=== PATIENT | male | born 2000 | race Caucasian/White ===

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

== ENCOUNTER 2021-09-23 16:47 | Outpatient (REF) | payer MEDICAID, SELFPAY ==
[2021-09-24 16:33] LABS: COVID-19 RT-PCR UVMMC Result Negative (Negative)
== END 2021-09-23 16:48 | disposition home or self-care (01) ==
LOC: LBN 16:47
PROVIDERS: Visit Provider Physician Assistant Medical
DX: Z20.822 Contact with and (suspected) exposure to COVID-19 (principal); J06.9 Acute upper respiratory infection, unspecified
CPT/HCPCS: U0003

== ENCOUNTER 2022-10-25 19:04 | Emergency (ER) | payer MEDICAID, SELFPAY ==
[2022-10-25 19:12] VITALS: BP 122/55; PULSE 83; RESP 16; TEMP 36.9; O2SAT 98
--- NOTE | 2022-10-25 19:16 | ED.GENADUL_ITS ---
Discharge Plan Disposition Patient Disposition: Home Condition: Improving Discharge Details Clinical Impression: Acute streptococcal pharyngitis Primary Care Provider: Unknown,Unknown ED Provider: Ash Kuo Home Meds and New Rx's Prescriptions: New penicillin V potassium 500 mg tablet 500 mg PO TID 9 Days Qty: 27 0RF Continued bupropion HCl 150 mg tablet extended release 24 hr 150 mg PO DAILY Label Comments: TAKE ONE TABLET BY MOUTH EVERY MORNING Discharge Instructions Instructions: Pharyngitis (ED) Additional Instructions: Penicillin every 6 hours for the first 4 doses, then 3 times daily until finished for a total of 10 days. You are given a single dose of dexamethasone today for its anti-inflammatory properties. You may continue ibuprofen and/or Tylenol as needed for pain. Small, frequent sips of fluids and/or popsicles to maintain hydration. Return to the emergency department for any acute concerns. Medical Decision Making 22-year-old male presents with day 3 of sore throat. He had a low-grade fever of 101. He is afebrile at the time of presentation, normotensive. Exam reveals an exudative pharyngitis. Rapid strep test obtained and is positive. We will treat with a course of penicillin. Patient given a single dose of dexamethasone for its anti- inflammatory properties. He is stable and appropriate for outpatient management HPI General Mode of arrival: ambulatory . Date/Time Provider Initiated Documentation: 10/25/22 19:06 . Limitations to Documentation: no limitations . Information obtained by: patient . History of Present Illness 22 year old M presents to the emergency department with the chief complaint of Sore throat for 3 days, described as moderate, Quality is described as dull and constant, and is localized to the mouth. Patient reports no radiation. Patient started experiencing this day(s) and it has been constant. No relieving factors improve symptom(s), No exacerbating factors reported . Patient notes fever/chills and other (Low-grade fever at home. No change to voice, swallowing normally). Patient did receive the following treatments prior to arrival, none Related Data Home Medications Medication Instructions Recorded Confirmed bupropion HCl 150 mg 24 hr tablet, 150 mg PO DAILY 11/27/20 11/27/20 extended release penicillin V potassium 500 mg 500 mg PO TID 9 days #27 tabs 10/25/22 tablet Previous Rx's Medication Instructions Recorded penicillin V potassium 500 mg 500 mg PO TID 9 days #27 tabs 10/25/22 tablet Allergies Allergy/AdvReac Type Severity Reaction Status Date / Time No Known Allergies Allergy Unverified 11/27/20 22:05 General Stated Complaint: Sorethroat TORRI: 4 Review of Systems Narrative: 7 systems reviewed and otherwise negative PFSH All Active Problems (Updated 10/25/22 @ 19:25 by Ash Kuo MD) Closed fracture of left clavicle (Acute) CHI (closed head injury) (Acute) Acute streptococcal pharyngitis (Acute) Medical History Anxiety Depression Social History Smoking/Tobacco Use Status: Former Tobacco Use Smoking risk assessment performed?: Yes Alcohol Intake: current Alcohol Intake frequency: a few times a month Alcohol type: beer Drug use: Occasionally Substance use type: marijuana Do you feel safe at home: Yes Do you feel safe in your relationship?: Yes Exam Narrative Exam Narrative: GEN: awake, alert, oriented 3. Pleasant, well groomed, interactive. HEAD: Normocephalic, atraumatic ENT: Mucous membranes moist, oropharynx erythematous with white exudate present. No significant swelling or asymmetry, the uvula is midline, tympanic membranes show mild congestion bilaterally,, External ear exam unremarkable EYES: PERRL, EOMI NECK: Full ROM, no GEOVANNY, no menigismus CHEST/RESP: Nontender, clear to auscultation bilateral, no wheeze/rhonchi/rales CARDIOVASCULAR: RRR, no murmur, rub jessica. 2+ Rad pulse bilateral ABDOMEN: Soft, nontender, no mass. +Bowel sounds EXT: Full ROM, no edema, no rash Neuro: Grossly normal neurologic exam, conversant, interactive. Psych: Speech fluent, thoughts congruent, affect normal Course Vital Signs Vital signs: Vital Signs Temperature 36.9 C 10/25/22 19:12 Pulse 83 10/25/22 19:12 Respiratory Rate 16 10/25/22 19:12 Blood Pressure 122/55 L 10/25/22 19:12 Pulse Oximetry 98 10/25/22 19:12 Temperature 36.9 C 10/25/22 19:12 Pulse 83 10/25/22 19:12 Respiratory Rate 16 10/25/22 19:12 Blood Pressure 122/55 L 10/25/22 19:12 Blood Pressure Position Sitting 10/25/22 19:12 Pulse Oximetry 98 10/25/22 19:12 Oxygen Delivery Method Room Air 10/25/22 19:12 Oxygen Flow Rate 0 10/25/22 19:12 Pain Level 7 10/25/22 19:12
[2022-10-25] MEDS: Penicillin V POTASSIUM 500 MG TAB, 4 TABS/BTL PO (19:30)
[2022-10-25] MEDS: Dexamethasone 4 MG TAB 8 MG PO (19:30)
[2022-10-26 02:43] VITALS: BP 123/62; PULSE 84; RESP 16; O2SAT 98
== END 2022-10-25 19:33 | disposition home or self-care (01) ==
PROVIDERS: Emergency Provider Emergency Medicine
DX: J02.0 Streptococcal pharyngitis (principal)
CPT/HCPCS: 36415; 87880; 99283; 99284; J8540

== ENCOUNTER 2022-12-16 13:46 | Emergency (ER) | payer MEDICAID, SELFPAY ==
--- NOTE | 2022-12-16 13:45 | DI.CT_ITS ---
Exam(s) CT ABDOMEN PELVIS W EXAM: CT ABDOMEN PELVIS W CLINICAL HISTORY: epigastric pain TECHNIQUE: Imaging Protocol: Axial computed tomography images with coronal and sagittal reformatted images were created and reviewed CONTRAST MATERIAL: Intravenous: Omnipaque 350 Contrast volume:100 mL Oral: No COMPARISON: No exams were available for comparison FINDINGS: ABDOMEN: Lung Bases: Normal where visualized. Liver: Normal density. No measurable mass. Portal, Superior Mesenteric, and Splenic Veins: Unremarkable. Gallbladder and Biliary Tract: No radiodense calculus or dilation. Pancreas: Normal density, no abnormal calcifications or inflammatory process. Spleen: Normal. Adrenals: No masses seen. Kidneys: Normal size, contour and axis. No radiodense stones or obstructive uropathy. No masses seen. Abdominal Aorta: Abdominal portion non-dilated. Bowel: No obstruction or bowel wall thickening. Status post appendectomy. Note is made of an enteroe nteric intussusception in the left upper quadrant. No obstruction is identified. Peritoneal Cavity: No ascites, collection or mesenteric inflammatory response. No free air. Lymph Nodes: Within normal limits. Bones: Within normal limits for the patient's age. Soft Tissues: Unremarkable. PELVIS: Bladder: Symmetric distention, no gross wall thickening. Reproductive Organs: Unremarkable as visualized. Lymph Nodes: Within normal limits. Bones: Within normal limits for the patient's age. IMPRESSION: 1. There is an enteroenteric intussusception in the left upper quadrant. There is no obstruction. 2. Otherwise unremarkable examination. 3. Findings were discussed with Sarita Corley at 4:17 p.m. on 12/16/2022. RADIATION DOSE DELIVERED: 612.1mGy.cm Total DLP DATA REPOSITORY: All CT scans at this facility are submitted to the National Radiology Data Registry (NRDR) Dose Index Registry (DIR) with the [employer] (A[employer]). RADIATION OPTIMIZATION: All CT scans at this facility use at least one of these dose optimization te chniques: automated exposure control; mA and/or kV adjustment per patient size (includes targeted exa ms where dose is matched to clinical indication); or iterative reconstruction.
[2022-12-16 13:48] VITALS: BP 133/84; PULSE 69; RESP 18; TEMP 36.6; O2SAT 100
[2022-12-16] MEDS: Ondansetron 4 MG/2 ML VIAL IVP (14:08)
[2022-12-16 14:14] LABS: Abs Immature Grans 0.01 10^3/uL (0.0-0.06); Absolute Basophil Count 0.04 10^3/uL (0.0-0.2); Absolute Eosinophil Count 0.04 10^3/uL (0.0-0.7); Absolute Lymphocyte Count 2.04 10^3/uL (1.2-3.4); Absolute Monocyte Count 0.47 10^3/uL (0.1-0.8); Absolute Neutrophil Count 4.31 10^3/uL (1.2-6.7); Basophils % 0.6; Eosinophils % 0.6; HCT 36.1 % (40.0-50.0); HGB 11.9 g/dL (13.5-17.5); Immature Grans % 0.1; Lymphocytes % 29.5; MCH 29.2 pg (27.0-33.0); MCV 89 fL (80-95); MPV 9.4 fL (8.0-11.0); Monocytes % 6.8; Neutrophils % 62.4; Platelet Count 273 10^3/uL (130-400); RBC 4.07 10^6/uL (4.36-5.78); RDW 11.9 % (11.8-14.1); RDW-SD 38.5 fL; WBC 6.91 10^3/uL (4.4-10.8)
[2022-12-16 14:18] LABS: Bilirubin Negative (Negative); Blood Negative (Negative); Clarity Clear (Clear); Glucose Negative (Negative); Ketones Negative (Negative); Leukocyte Esterase Negative (Negative); Nitrite Negative (Negative); Specific Gravity 1.025 (1.005-1.025); Urobilinogen 0.2 mg/dL (Up to 0.2)
[2022-12-16 14:29] LABS: ALT 20 U/L (16-63); AST 14 U/L (15-37); Albumin 4.4 g/dL (3.4-5.0); Alkaline Phosphatase 53 U/L (46-116); Anion Gap 4.6 mmol/L (3-11); BUN 19 mg/dL (7-18); Bilirubin, Total 0.4 mg/dL (0.2-1.0); CO2 28.4 mmol/L (21.0-32.0); CREATININE 0.8 mg/dL (0.70-1.30); Chloride 107 mmol/L (98-107); Estimated GFR 129.13 (mL/min/1.73m2); Glucose 94 mg/dL (74-106); Lipase 41 U/L (16-77); Potassium 3.8 mmol/L (3.5-5.1); Sodium 140 mmol/L (136-145); Total Protein 7.5 g/dL (6.4-8.2)
--- NOTE | 2022-12-16 15:26 | ED.GENADUL_ITS ---
Discharge Plan Disposition Patient Disposition: Home Condition: Stable Discharge Details Clinical Impression: Enterocolitis Primary Care Provider: Femi Rivera ED Provider: Sarita Corley Home Meds and New Rx's Prescriptions: New sucralfate [Carafate] 1 gram tablet 1 g PO BID Qty: 90 0RF Continued bupropion HCl 150 mg tablet extended release 24 hr 150 mg PO DAILY Patient Comments: not taking Discharge Instructions Additional Instructions: Continue on your prescribed medications You will need to follow-up with a surgeon tomorrow, they will likely call you in the afternoon, should you have decreased bowel movements or uncontrolled vomiting you must return immediately to the emergency department Take Tylenol as needed for pain Keep yourself hydrated Referrals: Femi Rivera [Primary Care Provider] - Chilo Ca MD [ [facility] STAFF PHYSICIAN] - Discharge Data Discharge Date/Time-TO BE ENTERED AT DEPARTURE: 12/16/22 16:37 Medical Decision Making This 22-year-old male presents with report of abdominal pain throughout the day today. Denies any exacerbating alleviating factors. Secondary to age, weight loss, and pain complaints and exam, did order CT abdomen and pelvis, diagnostic labs including lipase are all within normal limits Pending CT abdomen and pelvis at this time CT radiology interpretation my review shows possible enterocolitis 11 conception Case was discussed with Dr. Ca, radiologist Dr. Maury Ca secondary, recommendation for admission to the hospital for observation, however patient declines and would like to instead be reassessed at the surgeon's office tomor row Dr. Ca will follow-up with patient tomorrow afternoon Patient is fully alert, oriented, of decisional capacity, he is aware he must return to the emergency department immediately should he have uncontrolled nausea or vomiting or changes in his ability to have bowel movements Discharged home with stable vitals with reported improved pain Medical Records Medical records reviewed: Yes I reviewed the patient's medical records. HPI General Date/Time Provider Initiated Documentation: 12/16/22 13:57 . HPI Narrative: This 22-year-old male presents with report of abdominal pain which started today. Denies history of similar symptoms in the past. States has had some weight loss in the past month. He thinks about 30 pounds. He denies any night sweats. Used to drink alcohol heavily, drinks occasionally now. Denies any fever or chills. Denies known exacerbating or relieving factors. Denies any chest pain or shortness of breath. Related Data Home Medications Medication Instructions Recorded Confirmed bupropion HCl 150 mg 24 hr tablet, 150 mg PO DAILY 11/27/20 11/27/20 extended release sucralfate 1 gram tablet (Carafate) 1 g PO BID #90 tabs 12/16/22 Previous Rx's Medication Instructions Recorded sucralfate 1 gram tablet (Carafate) 1 g PO BID #90 tabs 12/16/22 Allergies Allergy/AdvReac Type Severity Reaction Status Date / Time No Known Allergies Allergy Unverified 12/16/22 13:51 General Stated Complaint: Abd Prob TORRI: 3 PFSH All Active Problems (Updated 12/16/22 @ 16:27 by EDUARDO Abdullahi) Closed fracture of left clavicle (Acute) CHI (closed head injury) (Acute) Enterocolitis (Acute) Medical History Anxiety Depression Social History Smoking/Tobacco Use Status: Current every day Tobacco Type: smokeless tobacco Smoking risk assessment performed?: Yes Alcohol Intake: current Alcohol Intake frequency: a few times a month Alcohol type: beer Drug use: Occasionally Substance use type: marijuana Do you feel safe at home: Yes Do you feel safe in your relationship?: Yes Exam Const General: cooperative and no acute distress Resp Effort & Inspection: normal respiratory effort Cardio Rate: regular rate GI Inspection: normal to inspection Other: diffuse tenderness without rebound or guarding Neuro General: patient alert and patient oriented x3 Course Vital Signs Vital signs: Vital Signs Temperature 36.6 C 12/16/22 13:48 Pulse 69 12/16/22 13:48 Respiratory Rate 18 12/16/22 13:48 Blood Pressure 133/84 12/16/22 13:48 Pulse Oximetry 100 12/16/22 13:48 Temperature 36.6 C 12/16/22 13:48 Temperature Source Tympanic 12/16/22 13:48 Pulse 69 12/16/22 13:48 Respiratory Rate 18 12/16/22 13:48 Respiratory Effort Normal, Non-Labored 12/16/22 13:50 Blood Pressure 133/84 12/16/22 13:48 Pulse Oximetry 100 12/16/22 13:48 Oxygen Delivery Method Room Air 12/16/22 13:48 Oxygen Flow Rate 0 12/16/22 13:48 Lab/Test Results Lab/Test Results: Laboratory Tests Range/Units 12/16/22 12/16/22 12/16/22 14:08 14:08 14:11 WBC (4.4-10.8) 10^3/uL 6.91 RBC (4.36-5.78) 10^6/uL 4.07 L Hgb (13.5-17.5) g/dL 11.9 L Hct (40.0-50.0) % 36.1 L MCV (80-95) fL 89 MCH (27.0-33.0) pg 29.2 MCHC (32.0-36.0) % 33.0 RDW (11.8-14.1) % 11.9 Plt Count (130-400) 10^3/uL 273 MPV (8.0-11.0) fL 9.4 Immature Gran % 0.1 Neutrophils % 62.4 Lymphocytes % 29.5 Monocytes % 6.8 Eosinophils % 0.6 Basophils % 0.6 Nucleated RBC % (0.0-0.3) % 0.0 Absolute Neutrophils (1.2-6.7) 10^3/uL 4.31 Absolute Lymphocytes (1.2-3.4) 10^3/uL 2.04 Absolute Monocytes (0.1-0.8) 10^3/uL 0.47 Absolute Eosinophils (0.0-0.7) 10^3/uL 0.04 Absolute Basophils (0.0-0.2) 10^3/uL 0.04 Sodium (136-145) mmol/L 140 Potassium (3.5-5.1) mmol/L 3.8 Chloride (98-107) mmol/L 107 Carbon Dioxide (21.0-32.0) mmol/L 28.4 Anion Gap (3-11) mmol/L 4.6 BUN (7-18) mg/dL 19 H Creatinine (0.70-1.30) mg/dL 0.8 Est GFR (CKD-EPI 2020) (mL/min/1.73m2) 129.13 Glucose (74-106) mg/dL 94 Calcium (8.5-10.1) mg/dL 9.0 Total Bilirubin (0.2-1.0) mg/dL 0.4 AST (15-37) U/L 14 L ALT (16-63) U/L 20 Alkaline Phosphatase (46-116) U/L 53 Total Protein (6.4-8.2) g/dL 7.5 Albumin (3.4-5.0) g/dL 4.4 Lipase (16-77) U/L 41 Urine Color (Yellow) Yellow Urine Clarity (Clear) Clear Urine pH (5-8) 6.0 Ur Specific [place] (1.005-1.025) 1.025 Urine Protein (Negative) mg/dL Negative Urine Ketones (Negative) mg/dL Negative Urine Blood (Negative) Negative Urine Nitrite (Negative) Negative Urine Bilirubin (Negative) Negative Urine Urobilinogen (Up to 0.2) mg/dL 0.2 Ur Leukocyte Esterase (Negative) Negative Urine Glucose (Negative) mg/dL Negative PAWSS Have you Been Recently Intoxicated or Drunk Within the Last 30 days?: No Have you Ever Experienced Previous Episodes of Alcohol Withdrawal?: Yes Have you ever Experienced Withdrawal Seizures?: No Have you ever Experienced Delirium Tremens(DT)s?: No Have you ever undergone Alcohol Rehabilitation Treatment (i.e, inpt ot outpatient treatment programs)?: No Have you ever Experienced Blackouts?: No Have you ever Combined Alcohol with other Downers within the last 90 days?: No Have you ever Combined Alcohol with any other Substance of Abuse during the last 90 days?: No Positive Blood Alcohol level on Presentation? [PCS.BAL]: No Evidence of Increased Autonomic Activity (i.e. HR>120, tremor, sweating, agitation, nausea)?: No Result: 1
[2022-12-16] MEDS: Omnipaque 350 MG/ML 100 ML BTL IJ (15:39)
[2022-12-16] MEDS: Normal Saline Flush 10 ML SYR IVP (15:42)
[2022-12-16 16:37] VITALS: BP 118/74; PULSE 72; RESP 18; O2SAT 98
== END 2022-12-16 16:37 | disposition home or self-care (01) ==
PROVIDERS: Emergency Provider Physician Assistant; PCP Chiropractor
DX: A04.71 Enterocolitis due to Clostridium difficile, recurrent (principal)
CPT/HCPCS: 36415; 80053; 83690; 96374; 99285; 74177; 81003; 85025; 99284; J2405; J3490

== ENCOUNTER 2023-06-30 08:41 | Emergency (ER) | payer MEDICAID, SELFPAY ==
[2023-06-30 08:44] VITALS: BP 167/95; PULSE 100; TEMP 37.1; O2SAT 100
--- NOTE | 2023-06-30 08:52 | DI.CT_ITS ---
Exam(s) CT ABDOMEN PELVIS W EXAM: CT ABDOMEN PELVIS W CLINICAL HISTORY: ruq pain, thin stools, hx of intussusception. TECHNIQUE: Imaging Protocol: Axial computed tomography images with coronal and sagittal reformatted images were created and reviewed CONTRAST MATERIAL: Intravenous: Omnipaque-350 100cc Oral: Yes. Oral contrast was administered for bowel opacification. COMPARISON: CT CT ABDOMEN PELVIS W from 12/16/2022 FINDINGS: VISUALIZED LUNG BASES: No nodules nor pleural effusions evident. ABDOMEN: There is no ascites. LIVER: There are no focal hepatic lesions evident. No dilated intrahepatic ducts. GALLBLADDER/BILIARY: No obvious gallbladder pathology. CBD is not dilated. PANCREAS: No evidence of pancreatic mass nor dilatation of the pancreatic duct. SPLEEN: Spleen is not enlarged. No obvious intrasplenic lesions. Splenic and portal veins are paten t. ADRENALS: There are no significant adrenal masses. KIDNEYS:No cysts evident. No solid renal masses. No calculi nor hydronephrosis.. ABDOMINAL AORTA: Abdominal aorta is not enlarged. LYMPH NODES:There is no retroperitoneal nor paraaortic adenopathy. ABDOMINAL WALL: No evidence of significant anterior abdominal wall nor inguinal hernia. GI: There is again noted an enteroenteric intussusception of the left-sided jejunal loop which is benjie ntical location to the prior intussusception described on the CT scan of 12/16/2022. There is no bow el obstruction at this level. No obvious mass. PELVIS: GI: Appendix is surgically absent.No evidence of sigmoid diverticulitis. LYMPH NODES: There is no intrapelvic nor inguinal adenopathy. REPRODUCTIVE: Prostate size normal. URINARY BLADDER: No calculi nor obvious masses evident OSSEOUS: No fractures and no significant osseous lesions. IMPRESSION: 1. There is a left-sided enteroenteric intussusception again noted at exact similar location to the s valerie finding on the prior CT scan November 2022. There is no bowel obstruction at this level. However, given the consistency of this finding I recommend further study, starting with upper GI series/small bowel follow-through. 2. No ascites. No free air. No bowel obstruction. 3. Appendix is surgically absent. Discussed with ER position. RADIATION DOSE DELIVERED: 725.26mGy.cm Total DLP DATA REPOSITORY: All CT scans at this facility are submitted to the National Radiology Data Registry (NRDR) Dose Index Registry (DIR) with the [employer] ([employer]). RADIATION OPTIMIZATION: All CT scans at this facility use at least one of these dose optimization te chniques: automated exposure control; mA and/or kV adjustment per patient size (includes targeted exa ms where dose is matched to clinical indication); or iterative reconstruction.
--- NOTE | 2023-06-30 08:55 | ED.GENADUL_ITS ---
Discharge Plan Disposition Patient Disposition: Home Discharge Details Clinical Impression: Abdominal pain, epigastric Primary Care Provider: Femi Rivera ED Provider: Cali Frias Home Meds and New Rx's Prescriptions: No Action bupropion HCl 150 mg tablet extended release 24 hr 150 mg PO DAILY Patient Comments: not taking sucralfate [Carafate] 1 gram tablet 1 g PO BID Qty: 90 0RF Patient Comments: not taking Discharge Instructions Instructions: Biliary Colic (ED), Epigastric Pain (ED) Additional Instructions: At this time your CAT scan does show evidence of the same lesion/intussusception that was noted before. However currently your symptoms do not appear co nsistent with an obstruction or other pathology caused by the intussusception. We did discuss this with the surgeons Dr. Ca, and they do recommend close follow-up for EGD and colonoscopy. We have placed a referral on your behalf, they will contact you with an appointment time. Additionally, there is concern that your symptoms may be secondary to a spasm of your gallbladder. Please avoid any greasy foods, dairy foods, or fatty foods. Please take a detailed diet diary/food diary over the next 48 weeks to look for any trends that may be bring about your symptoms. Please take Tylenol and Motrin as needed for pain. If you notice any worsening of your symptoms, or any new symptoms such as vomiting, diarrhea, fever, chills, shortness of breath, chest pain, numbness, weakness, or fainting , please return immediately to the emergency department for reevaluation. Please follow up with your primary care provider as soon as possible for reassessment and reevaluation. As always, it was a pleasure participating in your medical care today. Referrals: Femi Rivera [Primary Care Provider] - Chilo Ca MD [ [facility] STAFF PHYSICIAN] - Bushra Bradley DO [OSTEOPATHIC DOCTOR] - Medical Decision Making 23-year-old male with no significant past medical history however there is a high suspicion for potential Crohn's disease presents today for evaluation of abdominal pain. Patient states that in the past he has been seen for abdominal pain where he has had intermittent episodes of intussusception. There is generalized enteritis noted, and with a strong family history of Crohn's there is suspicion for Crohn's. Unfortunately he never was able to follow-up for his colonoscopy and endoscopy that was had been scheduled. He presents today for right upper quadrant abdominal pain. For the last 2 to 3 weeks he has had intermittent right upper quadrant abdominal pain. It occurs about 4-5 times per day, and it lasts and about 15-minute episodes. When it comes on it comes on usually 10 to 15 minutes after eating, he describes it as a balloon like sensation in the right upper quadrant, and then it becomes severe and sharp over the course of a minute or so and then gradually dissipates over the next 15 to 30 minutes. He denies any vomiting. He does admit to thin stools. He has not had a large bowel movement for the last 3 to 4 days. He denies any blood in his stools. He denies any vomiting. No fever or chills. No significant weight loss currently. He denies any specific food which worsens his symptoms. Exam demonstrates intact bowel sounds. Mild pain in the right upper quadrant, but negative Millan sign. Mild achiness in McBurney's point. Negative obturator and psoas sign. No evidence of an acute surgical abdomen. He states that his current pain is not as bad as the exacerbations that he has had earlier today and last night. Differential is broad but includes biliary colic, less likely cholecystitis. However tumor or mass with his thin stool is of concern, as well as exacerbation of Crohn's. Fistula is also on the differential. Discussed the risks and benefits of repeat radiographic evaluation, and at this point through shared decision-making process we will progress with a CT scan of the abdomen and transition to ultrasound if needed of the right upper quadrant due to the differential. Will monitor closely and reassess, gently rehydrate. Patient does not want anything for pain at this time. 12:39 PM Of patient's laboratory work-up has returned, unremarkable. No white count bandemia or left shift. Electrolytes normal. Urinalysis negative. Lipase normal. Patient's pain is still notably mild. CT scan was performed and again shows evidence of possible left-sided anterior enteric intussusception that is again noted in the exact similar location as prior CAT scan in November 2022. No bowel obstruction. I did discuss the case with Dr. Ca, he reviewed the images. He would like to follow-up closely with the patient on an outpatient basis for EGD and colonoscopy. At this time patient appears notably stable. He is does not show any current clinical evidence of obstruction, surgical abdomen, or other evidence of an active acute life-threatening etiology. Patient will be discharged home. Recommend avoidance of fatty foods, greasy foods, or dairy products. Recommend food diary. Discussed red flags for which to return. I have extensively reviewed the treatment plan and discharge instructions with the patient and their family. I have addressed all patient concerns at this time. The patient and family was made aware of what symptoms to monitor for that would warrant a return to the emergency department. Discussed the plan with the patient and family, they demonstrate verbal understanding and agreement with our assessment and plan at this time. The documentation in this chart was dictated using quietrevolution dictation software. Please excuse any dictation errors. FINDINGS: VISUALIZED LUNG BASES: No nodules nor pleural effusions evident. ABDOMEN: There is no ascites. LIVER: There are no focal hepatic lesions evident. No dilated intrahepatic ducts. GALLBLADDER/BILIARY: No obvious gallbladder pathology. CBD is not dilated. PANCREAS: No evidence of pancreatic mass nor dilatation of the pancreatic duct. SPLEEN: Spleen is not enlarged. No obvious intrasplenic lesions. Splenic and portal veins are patent. ADRENALS: There are no significant adrenal masses. KIDNEYS:No cysts evident. No solid renal masses. No calculi nor hydronephrosis.. ABDOMINAL AORTA: Abdominal aorta is not enlarged. LYMPH NODES:There is no retroperitoneal nor paraaortic adenopathy. ABDOMINAL WALL: No evidence of significant anterior abdominal wall nor inguinal hernia. GI: There is again noted an enteroenteric intussusception of the left-sided jejunal loop which is identical location to the prior intussusception described on the CT scan of 12/16/2022. There is no bowel obstruction at this level. No obvious mass. PELVIS: GI: Appendix is surgically absent.No evidence of sigmoid diverticulitis. LYMPH NODES: There is no intrapelvic nor inguinal adenopathy. REPRODUCTIVE: Prostate size normal. URINARY BLADDER: No calculi nor obvious masses evident OSSEOUS: No fractures and no significant osseous lesions. IMPRESSION: 1. There is a left-sided enteroenteric intussusception again noted at exact similar location to the same finding on the prior CT scan November 2022. There is no bowel obstruction at this level. However, given the consistency of this finding I recommend further study, starting with upper GI series/small bowel follow-through. 2. No ascites. No free air. No bowel obstruction. 3. Appendix is surgically absent. HPI General Date/Time Provider Initiated Documentation: 06/30/23 08:42 . HPI Narrative: 23-year-old male with no significant past medical history however there is a high suspicion for potential Crohn's disease presents today for evaluation of abdominal pain. Patient states that in the past he has been seen for abdominal pain where he has had intermittent episodes of intussusception. There is generalized enteritis noted, and with a strong family history of Crohn's there is suspicion for Crohn's. Unfortunately he never was able to follow-up for his colonoscopy and endoscopy that was had been scheduled. He presents today for right upper quadrant abdominal pain. For the last 2 to 3 weeks he has had intermittent right upper quadrant abdominal pain. It occurs about 4-5 times per day, and it lasts and about 15-minute episodes. When it comes on it comes on usually 10 to 15 minutes after eating, he describes it as a balloon like sensation in the right upper quadrant, and then it becomes severe and sharp over the course of a minute or so and then gradually dissipates over the next 15 to 30 minutes. He denies any vomiting. He does admit to thin stools. He has not had a large bowel movement for the last 3 to 4 days. He denies any blood in his stools. He denies any vomiting. No fever or chills. No significant weight loss currently. He denies any specific food which worsens his symptoms. Related Data Home Medications Medication Instructions Recorded Confirmed bupropion HCl 150 mg 24 hr tablet, 150 mg PO DAILY 11/27/20 11/27/20 extended release sucralfate 1 gram tablet (Carafate) 1 g PO BID #90 tabs 12/16/22 Previous Rx's Medication Instructions Recorded sucralfate 1 gram tablet (Carafate) 1 g PO BID #90 tabs 12/16/22 Allergies Allergy/AdvReac Type Severity Reaction Status Date / Time No Known Allergies Allergy Unverified 06/30/23 09:28 General Stated Complaint: Abd Prob TORRI: 3 Review of Systems All systems reviewed & are unremarkable except as noted in HPI and below PFSH All Active Problems (Updated 06/30/23 @ 12:39 by Cali Frias DO) Closed fracture of left clavicle (Acute) CHI (closed head injury) (Acute) Abdominal pain, epigastric (Acute) Medical History Anxiety Depression Social History Smoking/Tobacco Use Status: Current every day Tobacco Type: smokeless tobacco Smoking risk assessment performed?: Yes Alcohol Intake: current Alcohol Intake frequency: a few times a month Alcohol type: beer Drug use: Occasionally Substance use type: marijuana Housing: house Do you feel safe at home: Yes Do you feel safe in your relationship?: Yes Exam Narrative Exam Narrative: 1.Const: Well-nourished, Well-developed, appearing stated age 2.Eyes: PERRL, no conjunctival injection, and symmetrical lids. 3.ENT: Atraumatic external nose and ears. Moist MM. Neck: Symmetric, trachea midline, No thyromegaly. 4.CVS: +S1/S2, No murmurs or gallops. Peripheral pulses 2+ and equal in all extremities. Brisk capillary refill in all extremities. 5.RESP: Unlabored respiratory effort. Clear to auscultation bilaterally. No wheezes rales or rhonchi 6.GI: Soft, nondistended. No guarding or rebound. Mild tenderness in the right upper quadrant. Negative Millan sign. Mild achiness at McBurney's point. No rebound. Negative obturator and psoas sign. 7.MSK: Normocephalic/Atraumatic, Extremities w/o deformity or ttp No cyanosis or clubbing, Normal movement of all extremities 8.Skin: Warm, Dry. No rashes or lesions. 9.Neuro: customer care assistant II-XII grossly intact. Sensation grossly intact, no focal neurologic deficits. 10.Psych: (AAO) x3. Appropriate mood and affect Course Vital Signs Vital signs: Vital Signs Temperature 37.1 C 06/30/23 08:44 Pulse 100 H 06/30/23 08:44 Blood Pressure 167/95 H 06/30/23 08:44 Pulse Oximetry 100 06/30/23 08:44 Temperature 37.1 C 06/30/23 08:44 Temperature Source Temporal Artery Scan 06/30/23 08:44 Pulse 100 H 06/30/23 08:44 Blood Pressure 167/95 H 06/30/23 08:44 Blood Pressure Position Supine 06/30/23 08:44 Pulse Oximetry 100 06/30/23 08:44 Oxygen Delivery Method Room Air 06/30/23 08:44 Oxygen Flow Rate 0 06/30/23 08:44
[2023-06-30] MEDS: Breeza Beverage 473 ML BTL PO ×2 (09:02)
[2023-06-30] MEDS: Omnipaque 350 MG/ML 50 ML BTL IJ (09:03)
[2023-06-30 09:13] LABS: Abs Immature Grans 0.02 10^3/uL (0.0-0.06); Absolute Basophil Count 0.06 10^3/uL (0.0-0.2); Absolute Eosinophil Count 0.01 10^3/uL (0.0-0.7); Absolute Lymphocyte Count 2.34 10^3/uL (1.2-3.4); Absolute Monocyte Count 0.52 10^3/uL (0.1-0.8); Basophils % 0.6; Eosinophils % 0.1; HCT 39.5 % (40.0-50.0); HGB 13.6 g/dL (13.5-17.5); Immature Grans % 0.2; MCH 29.2 pg (27.0-33.0); MCHC 34.4 % (32.0-36.0); MCV 85 fL (80-95); MPV 9.3 fL (8.0-11.0); Monocytes % 5.6; Neutrophils % 68.5; Platelet Count 309 10^3/uL (130-400); RBC 4.65 10^6/uL (4.36-5.78); RDW 11.5 % (11.8-14.1); RDW-SD 35.4 fL; WBC 9.35 10^3/uL (4.4-10.8)
[2023-06-30 09:19] LABS: ALT 33 U/L (16-63); AST 22 U/L (15-37); Albumin 4.9 g/dL (3.4-5.0); Alkaline Phosphatase 59 U/L (46-116); BUN 26 mg/dL (7-18); Bilirubin, Total 0.6 mg/dL (0.2-1.0); Calcium 9.5 mg/dL (8.5-10.1); Chloride 100 mmol/L (98-107); Estimated GFR 109.13 (mL/min/1.73m2); Glucose 89 mg/dL (74-106); Lipase 20 U/L (16-77); Potassium 3.8 mmol/L (3.5-5.1); Sodium 136 mmol/L (136-145); Total Protein 8.6 g/dL (6.4-8.2)
[2023-06-30 09:24] LABS: Bilirubin Negative (Negative); Blood Negative (Negative); Clarity Clear (Clear); Glucose Negative (Negative); Ketones >=160 mg/dL (Negative); Leukocyte Esterase Negative (Negative); Nitrite Negative (Negative); Specific Gravity >= 1.030 (1.005-1.025); Urobilinogen 0.2 mg/dL (Up to 0.2)
[2023-06-30] MEDS: Normal Saline 1,000 ML 1000 ML IV (09:26)
[2023-06-30 10:24] VITALS: BP 142/81; PULSE 75; RESP 16; O2SAT 99
--- NOTE | 2023-06-30 10:26 | NUR.NOTE ---
Nursing Note: this RN took report from Am shift. Patient sitting up on edge of stretcher with mother at Bedside. VS WNL, continues drinking contrast for upcoming CT scan as ordered
[2023-06-30] MEDS: Omnipaque 350 MG/ML 100 ML BTL IJ (10:41)
[2023-06-30] MEDS: Normal Saline - Diluent 50 ML VIAL IJ (10:42)
--- NOTE | 2023-06-30 11:00 | DI.US_ITS ---
Exam(s) US ABDOMEN EXAM: US ABDOMEN CLINICAL HISTORY: eval RLQ and LUQ for GB path and intussusception TECHNIQUE: Ultrasound of complete upper abdomen performed using standard protocol. COMPARISON: No exams were available for comparison FINDINGS: There is no ascites evident. LIVER: There are no hepatic lesions evident nor obvious dilatation of intrahepatic ducts. GALLBLADDER/BILIARY: There are no gallstones. No gallbladder wall edema nor pericholecystic fluid. The common hepatic duct isnot dilated, measuring 4mm at the level of joseph hepatis. PANCREAS: There is no evidence of pancreatic mass nor dilatation of the pancreatic duct. SPLEEN: The spleen is not enlarged and there are no intrasplenic lesions evident. KIDNEYS:Kidneys exhibit normal size with no evidence of solid mass, calculus, nor hydronephrosis. No cortical cysts evident. ABDOMINAL AORTA: There is no evidence of abdominal aortic aneurysm. IVC: Normal diameter where visualized. IMPRESSION: 1. No evidence of cholelithiasis nor dilatation of the biliary tree. 2. No other significant ultrasound findings in the upper abdomen. 3. There is no ascites. DATA REPOSITORY:
[2023-06-30 12:51] VITALS: BP 138/62; PULSE 78; RESP 16; O2SAT 100
--- NOTE | 2023-06-30 13:46 | NUR.NOTE ---
Referral faxed to Surgery for intussuseption/mass; 1 to [address] Ca. Nursing Note:
== END 2023-06-30 12:53 | disposition home or self-care (01) ==
PROVIDERS: Emergency Provider Student in an Organized Health Care Education/Training Program; PCP Chiropractor
DX: R10.13 Epigastric pain (principal); K56.1 Intussusception; F17.290 Nicotine dependence, other tobacco product, uncomplicated
CPT/HCPCS: 36415; 80053; 83690; 99285; 74177; 76700; 81003; 85025; 99284; J3490; Q9967

== ENCOUNTER 2023-08-02 07:18 | Day surgery (SDC) | payer MEDICAID, SELFPAY ==
--- NOTE | 2023-08-01 19:03 | PDOC.DSDIS_ITS ---
Date of service: 08/02/23 Time of Service: 10:04 Discharge Plan Disposition Patient Disposition: Home Condition: Good Discharge Details Reason For Visit: stomach & colon scope Attending Provider: Bushra Bradley Primary Care Provider: Femi Rivera Home Meds and New Rx's Prescriptions: New pantoprazole [Protonix] 40 mg tablet,delayed release (DR/EC) 40 mg PO DAILY Qty: 30 12RF Continued omega 3-jwy-iyd-fish oil [Fish Oil] 1,200 (144-216) mg capsule 1 cap PO DIRECTED Discontinued polyethylene glycol 3350 17 gram/dose powder 238 g PO ONCE Qty: 238 0RF Rx Instructions: take per colonoscopy instructions bisacodyl [Dulcolax (bisacodyl)] 5 mg tablet,delayed release (DR/EC) 5 mg PO ONCE Qty: 8 0RF Rx Instructions: take per colonoscopy instructions Discharge Instructions Additional Instructions: DSU Colonoscopy Post- Op Instructions Instructions for Everyone who is given Anesthesia: For your safety, please do the following for the next twenty-four (24) hours: *Do Not operate a motor vehicle (car, truck, motorcycle, etc.) *Do Not drink alcoholic beverages or use any recreational drugs for the first 24 hours or while taking pain medications. The medications in your body may have a reaction that can be dangerous. *Do Not make any important decisions or sign any important papers. Findings: EGD: Esophagitis patient CE: normal Follow up: -PCP in 2 wks time Continue with lifestyle modifications: no alcohol, tobacco products, Aspirin or NSAID's (ibuprofen, Motrin, Naprosyn, aleve, etc), soda pop/any carbonated beverages, caffeine (including tea & chocolate), and acidic foods, (tomatoes, citrus, onions, peppermints) spicy or fried/fatty foods. Do not lie down for 30 minutes after eating, and do not eat 2 hours prior to bedtime. Avoid wearing tight fitting clothing/ belts Decrease use of any combustible inhalants. Rx- protonix 1. No lifting over 20 pounds or strenuous activity for the first 24 hours after your procedure. After 24 hours there are no restrictions on your activity but you may feel fatigued for a few days. 2. After you arrive home you may have a light meal and return to your normal diet as you can tolerate it without feeling sick to your stomach. 3. You may have a bloated, gaseous feeling in your belly (abdomen) after a colonoscopy. Passing gas and belching will help. Walking or lying down on your left side with your knees flexed may relieve the discomfort. Call the office at [phone] (Office) or [phone] (Hospital) right away if you notice any of the following: a.Vomiting of blood or ?coffee ground stools?. b.Rectal bleeding 1Tbsp, blood clots or continuous bleeding. c.Severe belly (abdominal) pain. d.A hard distended belly (abdomen) and an inability to pass gas. 4. Please don?t expect to have a normal BM (bowel movement) for 2-3 days after your procedure. 5. If there are questions regarding the findings of your procedure, please contact your doctor 6. If you are unable to contact your doctor with a problem, contact the hospital at [phone]. 7. Continue all your regular medications unless directed otherwise. I understand the above instructions and have no questions. 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 The patient has been able to pass gas.? They are not having abdominal pain.? They have been able to tolerate liquids and a snack.? They do not have any nausea or vomiting.? They are not having any chest pain or shortness of breath.??? They are not having any rectal bleeding. Their vital signs have been stable-see nursing notes. We discussed findings during their colonoscopy, and any biopsies that were done/polyps that were removed. The patient will be sent a letter with any biopsy results, and when to repeat the colonoscopy.-see discharge instructions. Patient was given explicit instructions to follow-up regarding colonoscopy-refer to discharge instructions.? We reviewed resumption of medications. Patient verbalized understanding and discharged in stable and satisfactory condition- See nursing notes. (6) Right upper quadrant abdominal pain of unknown etiology: Status: Acute (7) Anxiety: (8) Depression: (9) Erosive esophagitis: Status: Acute
--- NOTE | 2023-08-01 19:23 | COLE_ITS ---
Date of service: 08/02/23 Time of Service: 09:56 Colonoscopy Report Date of procedure: 08/02/23 Pre-op diagnosis general: RUQ pain/intussception/r/o IBD/Fmaily hx of IBD Post-op diagnosis procedure note: other (normal ) Surgeon: Bushra Bradley Anesthesia Type: General:No Airway Estimated blood loss (mL): 2 Pathology: other Complications: None Disposition: same day Prep: Miralax/Dulcolax Retraction Time: 13 Procedure Description: After informed consent was obtained the patient was taken to the procedure room and placed in a left decubitous position. Monitors were applied and a time out was done. The patients name, date of , procedure, allergies to medications and metal in their body was reviewed. The patient was then sedated. Once sedated and comfortable a rectal exam was done. External exam was normal. In ternal exam revealed a normal sphincter tone and no palpable masses. The prostate normal. The scope was then introduced and retrofelexed. No internal hemorrhoids were identified. The scope was then advanced to the cecum w/out difficulty. we were not able to cannulate the TI due to the pt respiratory status. The TI and appendiceal orifice were identified. The prep was BBPS 3 in all segments for a total of 9 The scope was then slowly retracted over 13 minutes back into the rectum. there are no polyps, AVMs, diverticula visualized. Mucosa is normal. The scope was removed, there are normal vascular pattern. Biopsies were taken in cecum/80/60/40 centimeters in the rectum. And the patient was woken up and taken back to Same day surgery in stable condition. The patient tolerated the procedure well and there were no immediate complications. Follow up: The patient should follow up at age 46, unless they develop changes in bowel habits or other new gastrointestinal complaints.
--- NOTE | 2023-08-01 19:44 | W.PM.ENDDOP ---
Date of service: 08/02/23 Time of Service: 10:01 Endoscopy Report DATE OF PROCEDURE: 08/02/23 PRE-OP DIAGNOSIS: epigastric pain/r/o celiac POST-OP DIAGNOSIS: other (Esophagitis ) SURGEON: Bushra Bradley ANESTHESIA TYPE: General:No Airway ESTIMATED BLOOD LOSS: 2 PATHOLOGY: other COMPLICATIONS: None DISPOSITION: same day PROCEDURE DESCRIPTION: After informed consent was obtained the patient was take to the procedure room and placed in a supine position. Monitors were applied and a time out was done. The patients name, date of , procedure type, allergies to medications and metal in their body was reviewed. A bite block was placed and the patient was sedated. Once sedated and comfortable the gastroscope was advanced through the oropharynx which was grossly normal into the esophagus. The proximal and mid-esophagus were normal patient. In the distal esophagus there was 10. Mild esophagitis. There are no signs varices, hiatal hernia, stricturing, or diverticula of the esophagus. Normal the scope was advanced into the stomach and through the pylorus into the 3rd portion of the duodenum. The duodenum was noted to be . The scope was worsened into the jejunum and biopsies were taken. She was gastritis or biopsies were done, all specimens are retrieved and no bleeding is noted. The scope was retracted back into the stomach and biopsies were done to rule out H. pylori. There were ulcers. The scope was retroflexed. The cardia and fundus were noted to be normal. There is no hiatal hernia noted. The scope was retracted back into the esophagus and biopsies were done of the GE junction to rule out Maldonado's. The Z line was irregular patient regular. The GE junction was at 38 cm from the lips. The scope was removed and the patient was woken up and taken back to [facility] in stable condition.
[2023-08-02 07:32] VITALS: BP 128/59; PULSE 80; RESP 16; TEMP 37; O2SAT 97
[2023-08-02] MEDS: Lactated Ringers 1,000 ML 80 ML IV (07:57)
--- NOTE | 2023-08-02 08:00 | W.ANESPRE ---
General Info Date of Service Date Performed: 08/02/23 Height: 5 ft 7 in Weight: 74.8 kg Body Mass Index (BMI): 25.8 Surgical Procedure: Operation Date: 08/02/23 08:20 Proposed Procedure Side Surgeon p Colonoscopy/Gastroscopy Bushra Bradley, DO Meds Allergies and Home Medications Allergies Allergy/AdvReac Type Severity Reaction Status Date / Time No Known Allergies Allergy Unverified 08/02/23 07:39 Home Medication Medication Instructions Recorded omega 2-cbw-klw-fish oil 1,200 mg 1 cap PO DIRECTED 07/07/23 (144 mg-216 mg) capsule (Fish Oil) Current Visit Medications: Current Medications Generic Name Dose Route Start Last Admin Trade Name Freq PRN Reason Stop Dose Admin Hyoscyamine Sulfate 0.125 mg 08/02/23 00:48 Hyoscyamine 0.125 Mg Sl/Oral/Chew SL 09/01/23 00:47 DIRECTED PRN Ringer's Solution 1,000 mls @ 80 mls/hr 08/02/23 06:00 08/02/23 07:57 IV 08/31/23 23:59 80 mls/hr INFUSION JOSE L Administration IV Miscellaneous Supplies 1 each 08/02/23 06:00 Iv Access IV 08/31/23 23:59 DIRECTED JOSE L Ondansetron HCl 4 mg 08/02/23 00:48 Ondansetron 4 Mg/2 Ml Vial IVP 09/01/23 00:47 Q4H PRN PRN Nausea / Vomiting Sodium Chloride 0 ml 08/02/23 06:00 Normal Saline Flush 10 Ml Syr IV 08/31/23 23:59 PRN PRN Sodium Chloride 0 ml 08/02/23 06:00 Normal Saline 10 Ml Vial IJ 08/31/23 23:59 DIRECTED PRN Sterile Water 0 ml 08/02/23 06:00 Water,Injection,Sterile 10 Ml Vial IJ 08/31/23 23:59 DIRECTED PRN PFSH Active Problems Active Problems: Problem Status Onset Code 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 08/02/23: Last vaped 0700am Tobacco Smoking/Tobacco Use Status: Current every day Tobacco Type: smokeless tobacco Alcohol Alcohol Intake: current Alcohol intake frequency: a few times a month Alcohol type: beer Substance Use Substance use: Occasionally Substance use type: marijuana Details: pt reports smoked marijuana 08/01/23 Vital Signs and Lab Results Vital Signs Most Recent Vital Signs in EMR: Most Recent Vital Signs Temp Pulse Resp BP Pulse Ox 37 C 80 16 128/59 L 97 08/02/23 07:32 08/02/23 07:32 08/02/23 07:32 08/02/23 07:32 08/02/23 07:32 Lab Results Blood Type / Crossmatch: No Data to Display Complete Blood Count: No Data to Display Complete Metabolic Panel: No Data to Display Liver Function Panel: No Data to Display Coagulation Panel: No Data to Display Cardiac Panel: No Data to Display Arterial Blood Gas: No Data to Display Venous Blood Gas: No Data to Display Pancreas Panel: No Data to Display Thyroid Panel: No Data to Display Infectious Disease: No Data to Display Blood Cultures: No Data to Display Toxicology Panel: No Data to Display Anesthesia Assessment and Plan Anesthesia History Personal History: No History of Anesthesia Complications Family History: No Family History of Anesthesia Complications Exercise Tolerance Exercise Tolerance: Metabolic Equivalents>4 Cardiac & Pulmonary Exam Cardiac Exam: Normal S1/S2 Heart Sounds Pulmonary Exam: Clear Bilateral Breath Sounds Implantable Cardiac Device Does patient have a Pacemaker or an ICD?: No Airway Exam Known Difficult Airway: No Mallampati Class: 2 Mouth Opening: Normal (> 3cm) Thyromental Distance: Greater than 3 cm Neck Range of Motion: Full ROM Neck Circumference: Normal Teeth Condition: Normal Dentition ASA Classification ASA Score: ASA 2 Emergency Case?: No NPO Status NPO Status: NPO Clears >2 hours, Solids >8 hours Anesthesia Plan Resuscitation Status: Full Code Anesthesia Technique: General Anesthesia Airway Planned: Natural Airway Monitors Used: Standard Monitors Preoperative Comments:: 23 yo male for EGD colo. Sig PMHX. GERD, daily tobacco/cannabis, occ EtOH. Denies major. States did have a stuffy nose 2 days ago, fells mostly normal now, just slightly stuffy.
[2023-08-02 08:03] VITALS: BMI 25.8
--- NOTE | 2023-08-02 08:30 | BOWEL_PTH ---
PATIENT: Moshe Scruggs LOC: [facility] U#:[id number] AGE/SX: 23/M ROOM: RE08/02/[address]: Bushra Bradley : 2000 BED: DIS: 08/02/2023 SPEC #: [id number] RECD: 08/02/23 12:43 STATUS: SANJUANITA REJoanne #: [id number] TING: 08/02/23 08:[address]: Bushra Bradley DEPT: Surgical Specimen RECD BY: Sarita Juarez ENTERED: 08/02/23 12:47 SP TYPE: Bowel OTHR DR: Femi Rivera Tissues: 1 - BIOPSY BOWEL 2 - BIOPSY BOWEL 3 - STOMACH BIOPSY 4 - STOMACH BIOPSY 5 - ESOPHAGUS BIOPSY 6 - ESOPHAGUS BIOPSY 7 - BIOPSY BOWEL 8 - BIOPSY BOWEL 9 - BIOPSY BOWEL 10 - BIOPSY BOWEL 11 - BIOPSY BOWEL Procedures: GROSS AND MICRO LEVEL 4 Comments: [id number]
[2023-08-02 09:15] VITALS: BP 93/49; PULSE 93; RESP 18; TEMP 36.5; O2SAT 94
--- NOTE | 2023-08-02 09:36 | W.ANESPOSTOP ---
Postoperative Evaluation Date, Time and Location Date Performed: 08/02/23 Time Performed: 09:36 Patient Location: Day Surgery Unit Vital Signs Most Recent Imported Vital Signs: Most Recent Vital Signs Temp Pulse Resp BP Pulse Ox 36.5 C 93 H 18 93/49 L 94 08/02/23 09:15 08/02/23 09:15 08/02/23 09:15 08/02/23 09:15 08/02/23 09:15 Assessment Mental Status: Awake (Alert & Oriented to Patient Baseline) Airway and Respiratory Function: Patent airway with normal (patient baseline) respiratory exam Cardiovascular Function: Hemodynamically Stable Hydration Status: Adequately Hydrated Nausea & Vomiting: No Nausea or Vomiting Pain: Pt. Denies Any Pain Peripheral Nerve Block: Patient did not receive a nerve block
[2023-08-02 09:44] VITALS: BP 107/56; PULSE 78; RESP 18; TEMP 36.9; O2SAT 96
== END 2023-08-02 10:34 | disposition home or self-care (01) ==
LOC: SUR 07:19
PROVIDERS: PCP Chiropractor; Visit Provider Surgery
PROC: (CPT 45380; principal; 2023-08-02 08:15)
DX: R10.11 Right upper quadrant pain; K22.10 Ulcer of esophagus without bleeding; K56.1 Intussusception; K59.09 Other constipation; R12 Heartburn; Z72.0 Tobacco use; F12.90 Cannabis use, unspecified, uncomplicated
CPT/HCPCS: 45380; 43239; 88305; J2001; J2250

== ENCOUNTER 2024-03-16 17:25 | Emergency (ER) | payer MEDICAID, SELFPAY ==
--- NOTE | 2024-03-16 17:26 | ED.GENADUL_ITS ---
Discharge Plan Disposition Patient Disposition: Home Discharge Details Clinical Impression: Abscess of left forearm Primary Care Provider: Femi Rivera ED Provider: Kimo Torres Home Meds and New Rx's Prescriptions: New sulfamethoxazole-trimethoprim [Bactrim DS] 800-160 mg tablet 1 tab PO BID 5 Days Qty: 10 0RF Continued omega 8-gzj-nqs-fish oil [Fish Oil] 1,200 (144-216) mg capsule 1 cap PO DIRECTED pantoprazole [Protonix] 40 mg tablet,delayed release (DR/EC) 40 mg PO DAILY Qty: 30 12RF Discharge Instructions Instructions: Skin Abscess Additional Instructions: You are seen in the emergency department for your abscess. An incision and drainage was attempted at bedside but did not yield any significant amount of pus. Your abscess was quite small. As we discussed, please soak your arm twice a day and warm water. Please take these antibiotics as directed. Please return to the emergency department if you develop fevers nausea vomiting or cannot keep down your antibiotics. Otherwise please follow-up with your primary care provider next week. HPI General Date/Time Provider Initiated Documentation: 03/16/24 17:26 . HPI Narrative: MDM This is an overall very well-appearing normothermic and not tachycardic [id number]-[id number] 24-year-old male with a very small left proximal forearm abscess for which I attempted I&D but unfortunate was not able to express any purulent fluid. No pain out of proportion to suggest necrotizing soft tissue infection. Will treat patient with trimethoprim/sulfamethoxazole and counseled on twice daily warm water soaks. Patient has full range of motion in left elbow so I am not concerned for septic joint. His swelling and tenderness is distal to his elbow so I am not concerned for bursitis. No history of IV drug use no recent PICC line to suggest increased risk for upper extremity DVT. No significant trauma and no limitations of range of motion so my suspicion for fracture was low so I did not feel that the patient required plain films. No history of IV drug use so I am not suspicious for retained needle nor foreign body. [facility] We discussed return indications including worsening pain swelling or any fevers. Patient understood his return indications and was discharged with empiric trial of expectant outpatient management. HPI This is a previously healthy drnnd-kvek-jjtrejbk 24-year-old male up-to-date with immunizations arrived to the emergency department via private vehicle in the setting of left proximal forearm pain and swelling. Patient reports that several days ago he fell and landed on his bilateral upper extremities. He works in construction. He did not hit his head. He says that he is having worsening pain in his left proximal forearm for the past 2 days. Yesterday he reported that there was a small cross. He said no recent fevers nausea vomiting chest pain or shortness of breath. He does not take any routine medication. No recent PICC line. He denies any IV drug use. He has no pain when he ranges his elbow and arthritis. Exam General: Well-appearing in no acute distress speaking in complete sentences. Head: Normocephalic, atraumatic. Eye: Extraocular eye movements intact. No conjunctival injection. No scleral icterus. Ear, nose, mouth, throat: Grossly normal inspection. Normal voice, handling secretions normally. Neck: Trachea midline. Cardiovascular: Well-perfused distal extremities. Respiratory: Nonlabored respiration. Gastrointestinal: Nondistended abdomen. Musculoskeletal: On the dorsal side of the left proximal forearm there is an approximately 1 x 1 cm area of mild swelling with tenderness noted trace fluctuance. Full range of motion throughout left upper extremity. No swelling in elbow. Left hand warm well-perfused with 2+ left radial pulse. Cap refill less than 2 seconds in the left fingertips. Sensation motor function intact in the left hand across the radial, median, and ulnar nerve distributions. Skin: Normal for age and race, grossly normal temperature and turgor. No acute rash. Neurologic: Alert and appropriate, no apparent acute deficits. Psychiatric: Mood and manner are appropriate. Grooming and personal hygiene are appropriate. Related Data Home Medications Medication Instructions Recorded Confirmed omega 7-rju-nma-fish oil 1,200 mg 1 cap PO DIRECTED 07/07/23 08/02/23 (144 mg-216 mg) capsule (Fish Oil) pantoprazole 40 mg tablet,delayed 40 mg PO DAILY #30 tabs 08/02/23 release (Protonix) sulfamethoxazole 800 1 tab PO BID 5 days #10 tabs 03/16/24 mg-trimethoprim 160 mg tablet (Bactrim DS) Previous Rx's Medication Instructions Recorded pantoprazole 40 mg tablet,delayed 40 mg PO DAILY #30 tabs 11/07/23 release (Protonix) sulfamethoxazole 800 1 tab PO BID 5 days #10 tabs 03/16/24 mg-trimethoprim 160 mg tablet (Bactrim DS) Allergies Allergy/AdvReac Type Severity Reaction Status Date / Time No Known Allergies Allergy Unverified 08/02/23 07:39 General TORRI: 3 Procedures Abscess I/D Site: Upper Extremity Side (if applicable): Left Local Anesthetic: Lidocaine 2% and With Epi Amount of anesthesia used (mL): 5 Technique: Incised with #11 Blade Irrigation: No Packing used?: None Complications: Other (No significant fluid was obtained following 2 incision attempts.) Medical Decision Making Quality:SDOH Health Related Social Needs: No Data to Display PFSH All Active Problems (Updated 03/16/24 @ 18:16 by Kimo Torres MD) Abscess of left forearm (Acute) Normal colonoscopy (Acute ~08/02/23) Erosive esophagitis (Acute ~08/02/23) 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 (Acute) Tobacco use (Acute) Heartburn symptom (Acute) Chronic constipation (Acute) Intussusception intestine (Acute) Right upper quadrant abdominal pain of unknown etiology (Acute) CHI (closed head injury) (Acute) Closed fracture of left clavicle (Acute) Medical History (Updated 03/16/24 @ 18:16 by Kimo Torres MD) Anxiety Depression Surgical History (Updated 08/16/23 @ 13:17 by Margarita Rodgers RN) History of esophagogastroduodenoscopy (EGD) (~08/02/23) History of colonoscopy (~07/2023) Biopsies taken Social History Smoking/Tobacco Use Status: Current every day Tobacco Type: smokeless tobacco Smoking risk assessment performed?: Yes Alcohol Intake: current Alcohol Intake frequency: a few times a month Alcohol type: beer Drug use: Occasionally Substance use type: marijuana Details: pt reports smoked marijuana 08/01/23 Housing: house Current gender identity: male Do you feel safe at home: Yes (lives with grandparents) Do you feel safe in your relationship?: Yes POCUS Exam (ED) Limited Soft Tissue Exam DATE OF EXAM: 03/16/24 TIME OF EXAM: 18:18 PROVIDER THAT PERFORMED THE STUDY: Kimo Melissa IS THIS A REPEAT EXAM DURING THIS ENCOUNTER: No LOCATION OF EXAM: Upper extremity/left REASON FOR EXAM: Abscess Exam Complete DIFFERENTIAL DIAGNOSES: Approximately 0.5 cm deep small anechoic fluid collection
[2024-03-16 17:29] VITALS: BP 160/75; PULSE 81; RESP 16; TEMP 36.9; O2SAT 99
[2024-03-16 18:27] VITALS: BP 160/75; PULSE 81; RESP 16; TEMP 36.9; O2SAT 99
[2024-03-16] MEDS: Acetaminophen 500 MG TAB 1000 MG PO (18:28)
[2024-03-16] MEDS: Ibuprofen 600 MG TAB PO (18:28)
[2024-03-16] MEDS: Sulfameth/Trimeth DS TAB 1 TAB PO (18:28)
--- OUTSIDE RECORDS SUMMARY | 2024-03-16 18:35 | XMS_ITS | Continuity of Care Document ---
Author Name Unknown Organization [facility] Address [address] [place] [address] Encounter [facility] FIN NBR [id number] Date(s): 03/11/24 - 03/11/24 [facility] [address] [place], [place] [address] Encounter Diagnosis Pain in left upper arm(Final) - Pain in right knee(Final) - Fall on and from ladder, initial encounter(Final) - Discharge Disposition: Left Against Medical Advice Attending Physician: Ash Baptiste MD Admitting Physician: Ash Baptiste MD Allergies, Adverse Reactions, Alerts No Known Medication Allergies Assessment and Plan Extracted from: Title:ED Provider Note Author:Tiffanie Aguayo Date:03/11/24 AMA Functional Status 03/11/24 Family Member Travel History No recent t ravel Recent Travel History No recent travel Other exposure to Infectious Disease Non e Mental Status 03/11/24 Eye Opening Response J Carlos Spontaneous ly Best Verbal Response [place] Oriented Best Motor Response J Carlos Obeys comman ds J Carlos Coma Score 15 Vital Signs Most recent to oldest [Reference Range]: 1 2 Temperature Temporal Artery [36-38 Deg C ] 37.1 Deg C (03/11/24 6:31 PM) Peripheral Pulse Rate [60-100 bpm] 76 bp m (03/11/24 6:31 PM) Respiratory Rate [12-24 br/min] 18 br/mi n (03/11/24 6:31 PM) 18 br/min (03/11/24 6:20 PM) Blood Pressure [90-140/60-90 mmHg] 152/7 1mmHg *HI* (03/11/24 6:31 PM) Mean Arterial Pressure, Cuff [65-140 mmH g] 98 mmHg (03/11/24 6:31 PM) Weight 81.65 kg (03/11/24 6:31 PM) Weight Dosing 81.650 kg (03/11/24 6:31 PM) Height 167.64 cm (03/11/24 6:31 PM) Body Mass Index 29.05 kg/m2 (03/11/24 6:31 PM) Social History Social History Type Response Smoking Status Smoking tobacco use: Never tobacco user;Smokeless tobacco user within last 30 days entered on: 03/11/24 Sex Physician Emergency department Note * EDUARDO Aguayo: PERFORM Event Display: ED Note Physician Authored Date: [id number] AUGUSTA HEWITT :2000 Age:23 years Sex:Male Visit Date:03/11/2024 Basic Information Time Seen: EDUARDO Aguayo / 03/11/2024 18:20 Chief Complaint Pt fell 12 ft off of a ladder 2 days ago. He is having pain in his L upper arm and R knee. History Of Present Illness: Patient is a 23-year-old male presents the emergency department having??2 days ago??been involved in a??incident where??he was up on a ladder in the yard. ??The ladder fell backwards and he fell approximately 12 feet landing on his back.?? Patient notes that as he fell he hide onto the ladder whichcaught him in the back of the arm on the left.?? He continues to have significant left arm pain which is his only complaint. ??Patient notes that he did not lose consciousness??has had no vision changes but did have several episodes of vomiting this morning.?? This prompted him to come for evaluation. ??Patient is primarily concerned about his left upper extremity??as he is having pain on the inner aspect of the tricep??along with bruising to the elbow. Patient has no numbness or tingling??is having no??difficulty with ambulation but does have some right knee discomfort??and presents for evaluation. Review of Systems: See HPI for details Physical Exam Vitals & Measurements T:??37.1?C ??(Temporal Artery)?? HR:??76??(Peripheral)?? RR:??18?? BP:??152/71?? SpO2:??100%?? HT:??167.64??cm?? WT:??81.65??kg?? BMI:??29.05?? Pain Score:??3?? O2 Therapy:??Room air?? Patient alert oriented age-appropriate well-nourished nontoxic, GCS 15 Normocephalic atraumatic Neck supple nontender, no step-off midline tenderness or??crepitus appreciated EOM intact, PERRLA, sclera nonicteric Clear to auscultation bilaterally Regular rate and rhythm no murmurs Left upper extremity is examined, there is significant ecchymosis and tenderness to the medial aspect of the inner arm??there is no air air emphysema or??fluctuance appreciated,??bicep is intact and strength is equal bilaterally peripheral pulses are equal bilaterally Appropriate mood and affect Medical Decision Making: Patient remains GCS 15 throughout his stay. ??At this time I had ordered a CAT scan??of his head and neck, elbow??and humerus x-ray.?? I??sent x-ray and to do these and she was informed that the patient was refusing I went in there and patient states that he does not have money for this does not feel that there isanything wrong and left??without treatment or further discussion. ??He states that he will come back??if there is any other concerns. ??Patient??did not sign an AMA form as he simply got up and left during this conversation. Procedure No Qualifying Data Assessment/Plan AMA Problem List/Past Medical History Ongoing Tobacco user Historical No qualifying data Allergies No Known Medication Allergies Social History Electronic Cigarette/Vaping Electronic Cigarette Use: Never. Substance Use Current, Marijuana, Daily Tobacco Never tobacco user Tobacco Use:. Smokeless tobacco user within last 30 days Smokeless Tobacco use:. Electronically Signed on 03/11/2024 22:06 EDT EDUARDO Aguayo Patient Care team information Care Team Related Persons Name: JALEEL HEWITT Address: Home [address] [place] [address] [phone] [facility] Address: Mailing [address] [place] [address] [phone] Name: JALEEL HEWITT Address: Home [address] [place] [address] [phone] [facility] Address: [address]ailing [address] [place] [address] [phone]
== END 2024-03-16 18:27 | disposition home or self-care (01) ==
LOC: ER 18:34
PROVIDERS: Emergency Provider Emergency Medicine; PCP Chiropractor
DX: L02.414 Cutaneous abscess of left upper limb (principal)
CPT/HCPCS: 10060; 76882; 99284; 99283

== ENCOUNTER 2025-03-09 19:12 | Emergency (ER) | payer SELFPAY ==
[2025-03-09 19:16] VITALS: BP 161/78; PULSE 85; RESP 20; TEMP 36.7; O2SAT 98
--- NOTE | 2025-03-09 19:31 | W.ED.GENAD ---
Discharge Plan Disposition Patient Disposition: Home Condition: Stable Discharge Details Clinical Impression: Rash Primary Care Provider: Femi Rivera ED Provider: Slick Puga Home Meds and New Rx's Prescriptions: New prednisone 20 mg tablet See Rx Instructions .ROUTE .COMPLEX Qty: 18 0RF Rx Instructions: Take 60 mg daily for 3 days then 40 mg daily for 3 days then 20 mg daily for 3 days. Discharge Instructions Additional Instructions: You can continue with any topical hydrocortisone. He can also use as needed Benadryl, follow dosing instructions on the packaging. You can also take a daily generic Zyrtec or Claritin or other generics. If no improvement within a week follow-up with either your primary care provider or express care. If he feels he may be more ill or have new symptoms such as difficulty breathing or vomiting return to the emergency department for evaluation. HPI General Mode of arrival: ambulatory. Date/Time Provider Initiated Documentation: 03/09/25 19:21. Limitations to Documentation: no limitations. Information obtained by: patient. History of Present Illness 24 year old M presents to the emergency department with the chief complaint of rash on arms, itching, described as moderate, Patient started experiencing this day(s) (2) and it has been constant. No relieving factors improve symptom(s), No exacerbating factors reported . Patient notes no other symptoms.. Related Data Home Medications ?Medication ?Instructions ?Recorded ?Confirmed prednisone 20 mg tablet See Rx Instructions .Route 03/09/25 .COMPLEX #18 tabs Previous Rx's ?Medication ?Instructions ?Recorded prednisone 20 mg tablet See Rx Instructions .Route 03/09/25 .COMPLEX #18 tabs Allergies Allergy/AdvReac Type Severity Reaction Status Date / Time No Known Allergies Allergy Verified 03/09/25 19:20 General Stated Complaint: RashLesion TORRI: 4 Review of Systems All systems reviewed & are unremarkable except as noted in HPI and below Constitutional Constitutional: Denies chills and Denies fever(s) ENT Ears, Nose, Mouth, and Throat: Denies change in voice Cardiovascular Cardiovascular: Denies chest pain and Denies dyspnea Respiratory Respiratory: Denies cough and Denies dyspnea Gastrointestinal Gastrointestinal: Denies vomiting Integumentary/Breasts Skin/Breast: Reports rash Exam Const General: no acute distress Orientation: alert HENMT Head: normal to inspection Ears: external ears normal General nose exam: external nose normal Mouth: moist mucous membranes Eyes General: appearance normal, both eyes and all related structures Neck Neck: normal visual inspection Resp Effort & Inspection: normal respiratory effort and able to speak in complete sentences Cardio Rate: regular rate Skin Rashes: rashes noted Neuro General: patient alert and patient oriented x3 Extrem General: normal to inspection Psych Mental Status: mental status grossly normal Course Vital Signs Vital signs: Vital Signs Temperature 36.7 C 03/09/25 19:16 Pulse 85 03/09/25 19:16 Respiratory Rate 20 03/09/25 19:16 Blood Pressure 161/78 H 03/09/25 19:16 Pulse Oximetry 98 03/09/25 19:16 Temperature 36.7 C 03/09/25 19:16 Temperature Source Oral 03/09/25 19:16 Pulse 85 03/09/25 19:16 Respiratory Rate 20 03/09/25 19:16 Blood Pressure 161/78 H 03/09/25 19:16 Blood Pressure Position Sitting 03/09/25 19:16 Pulse Oximetry 98 03/09/25 19:16 Oxygen Delivery Method Room Air 03/09/25 19:16 Oxygen Flow Rate 0 03/09/25 19:16 Medical Decision Making 24-year-old male comes in with 2 days of an itchy rash on his arms. 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 He has linear fluid-filled lesions on his anterior forearms. No other rashes elsewhere. No mucous membrane lesions. No fevers, chills, systemic symptoms. His exam is consistent with likely either poison charlene or sumac. Will start him on a prednisone taper. Will follow-up with his PCP if not proving and return precautions given. 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 (Acute) Tobacco use (Acute) Heartburn symptom (Acute) Chronic constipation (Acute) Intussusception intestine (Acute) Right upper quadrant abdominal pain of unknown etiology (Acute) CHI (closed head injury) (Acute) Closed fracture of left clavicle (Acute) Medical History (Updated 03/09/25 @ 19:34 by Slick Puga MD) Anxiety Depression Surgical History (Updated 08/16/23 @ 13:17 by Margarita Rodgers RN) History of esophagogastroduodenoscopy (EGD) (~08/02/23) History of colonoscopy (~07/2023) Biopsies taken Social History Smoking/Tobacco Use Status: Former Tobacco Use Quit Date: 03/07/24 Smoking risk assessment performed?: Yes Alcohol Intake: current Alcohol Intake frequency: a few times a month Alcohol type: beer Drug use: Occasionally Substance use type: marijuana Details: pt reports smoked marijuana 08/01/23 Housing: house Current gender identity: male Do you feel safe at home: Yes (lives with grandparents) Do you feel safe in your relationship?: Yes
[2025-03-09] MEDS: predniSONE 20 MG TAB 60 MG PO (19:45)
== END 2025-03-09 19:40 | disposition home or self-care (01) ==
PROVIDERS: Emergency Provider Emergency Medicine; PCP Chiropractor
DX: R21 Rash and other nonspecific skin eruption (principal)
CPT/HCPCS: 99283 ×2; J7512